=== PATIENT | male | born 1950 | race Caucasian/White ===

== ENCOUNTER 2023-11-06 10:24 | Emergency (ER) | payer OTHER ==
[~2023-11-06] VITALS: Ht 185.4 cm; Wt 118.8 kg
[2023-11-06 10:24] VITALS: BP_SYST 129; PULSE 110; RESP 17; TEMP 98.2; O2SAT 98
[2023-11-06] MEDS ORDERED: LORA-259 PO (10:47)
[2023-11-06] MEDS ORDERED: HYDR-3917 PO (10:47)
[2023-11-06] MEDS ORDERED: HYDR-2923 PO (10:47)
[2023-11-06] MEDS ORDERED: TRAZ50TA54 PO (10:47)
[2023-11-06] MEDS ORDERED: DIPH50CA38 PO (10:47)
[2023-11-06] MEDS ORDERED: METO5TAB7 PO (10:47)
[2023-11-06] MEDS ORDERED: iohexoL 350 mgI/mL, 100 ML INFUS..BTL IV ONE (10:51)
[2023-11-06 11:10] LABS: HEMATOCRIT 25.6 % (36-54); HEMOGLOBIN 8.1 g/dL (14.0-18.0); MEAN CORPUSCULAR HEMOGLOBIN 26 pg (27-31); MEAN CORPUSCULAR HGB CONC 32 % (32-36); MEAN CORPUSCULAR VOLUME 82 fL (79.0-98.0); PLATELET COUNT (AUTO) 198 K/uL (130-430); RED BLOOD CELL COUNT(AUTO) 3.14 MIL/uL (4.2-6.2); RED CELL DISTRIBUTION WIDTH 16.6 % (9.0-15.0)
[2023-11-06] MEDS ORDERED: ANTIHISTAMINE PO (11:23)
[2023-11-06] MEDS ORDERED: BISA10SU61 RC (11:23)
[2023-11-06] MEDS ORDERED: SIME80TA5 PO (11:23)
[2023-11-06] MEDS ORDERED: MOM PO (11:23)
[2023-11-06] MEDS ORDERED: ANTIDIARRHEAL (11:23)
[2023-11-06] MEDS ORDERED: EPIN0.3S IM (11:23)
[2023-11-06] MEDS ORDERED: NALO4SPR INH (11:23)
[2023-11-06] MEDS ORDERED: GUAI5SYR PO (11:23)
[2023-11-06 11:25] LABS: WHITE BLOOD COUNT (AUTO) 6.2 K/uL (4.8-10.8)
[2023-11-06 11:28] LABS: INR 1.3 (0.80-1.20); PROTHROMBIN TIME 13.7 SECS (9.5-12.5)
[2023-11-06 11:31] LABS: ALANINE AMINOTRANSFERASE 10 U/L (12-78); ALBUMIN 2.7 g/dL (3.4-4.8); ANION GAP 5 (5-15); ASPARTATE AMINOTRANSFERASE 24 U/L (10-37); CALCIUM 8.9 mg/dL (8.4-11.0); CARBON DIOXIDE 29 mmol/L (23-29); CHLORIDE 103 mmol/L (98-107); CREATININE 1.57 mg/dL (0.55-1.30); GLUCOSE 86 mg/dL (74-106); POTASSIUM 3.2 mmol/L (3.5-5.1); SODIUM SERUM 137 mmol/L (136-145); TOTAL PROTEIN, SERUM 6.4 g/dL (6.4-8.3); UREA NITROGEN, BLOOD 31 mg/dL (8-21)
[2023-11-06 11:36] LABS: BILIRUBIN,DIRECT 0.5 mg/dL (0.0-0.3)
[2023-11-06] MEDS ORDERED: OMEP-268 PO (11:38)
[2023-11-06] MEDS ORDERED: RIVA20TA PO (11:38)
[2023-11-06] MEDS ORDERED: POTA-360 PO (11:38)
[2023-11-06] MEDS ORDERED: LUTE6CAP (11:38)
[2023-11-06] MEDS ORDERED: ALL300 PO (11:38)
[2023-11-06] MEDS ORDERED: SUCR1TAB PO (11:38)
[2023-11-06] MEDS ORDERED: ASPI81CA PO (11:38)
[2023-11-06] MEDS ORDERED: BUME1TAB31 PO (11:38)
[2023-11-06] MEDS ORDERED: ASCO500C18 PO (11:38)
[2023-11-06] MEDS ORDERED: NAPR-686 PO (11:38)
[2023-11-06] MEDS ORDERED: LEVO75CA5 PO (11:38)
[2023-11-06] MEDS ORDERED: MAGN400T7 PO (11:38)
[2023-11-06] MEDS ORDERED: DOCU250C75 PO (11:38)
[2023-11-06] MEDS ORDERED: VITAMIN E PO (11:39)
[2023-11-06] MEDS ORDERED: MULT-1294 PO (11:39)
[2023-11-06] MEDS ORDERED: PYRI100T22 PO (11:39)
[2023-11-06 11:44] LABS: ALCOHOL, BLOOD < 3 mg/dL (<10)
[2023-11-06 11:52] LABS: BILIRUBIN,URINE NEGATIVE (NEGATIVE); BLOOD, URINE 2+ (NEGATIVE); CLARITY/URINE CLEAR (CLEAR); COLOR,URINE YELLOW (YELLOW); GLUCOSE,URINE NEGATIVE (NEGATIVE); KETONES,URINE NEGATIVE (NEGATIVE); LEUKOCYTE ESTERASE ,URINE 3+ (NEGATIVE); NITRITE, URINE POSITIVE (NEGATIVE); PROTEIN URINE 1+ (NEGATIVE); UROBILINOGEN,URINE 0.2 (0.2-1.0)
[2023-11-06 12:06] LABS: BACTERIA,URINE MODERATE /HPF (None Seen); RBC,URINE 50-80 /HPF (0-3); WBC,URINE 50-80 /HPF (0-3)
[2023-11-06] MEDS ORDERED: BACITRACIN 1 GM OINT TP ONE (12:28)
[2023-11-06] MEDS: ATORVASTATIN 20 MG TABLET PO SCH (12:30)
[2023-11-06] MEDS ORDERED: VANCOMYCIN HCL 1000 MG/VIAL IV ONE (12:33)
[2023-11-06] MEDS ORDERED: cefTRIAXone 1 GM VIAL ONE (12:34)
[2023-11-06 12:51] LABS: TOTAL BILIRUBIN 0.8 mg/dL (0.0-1.0)
[2023-11-06] MEDS: cefTRIAXone 1 GM in D5W 50 ML IV ONE (12:52)
[2023-11-06] MEDS: VANCOMYCIN HCL 1,000 MG in NS 250 ML IV ONE (12:53)
[2023-11-06] MEDS: BACITRACIN 1 GM OINT TP ONE (12:53)
[2023-11-06] MEDS: ASPIRIN 325 MG TABLET (ECOTRIN) PO ONE (12:53)
[2023-11-06 13:05] LABS: ATYPICAL LYMPHOCYTES % 3 % (0-0); BAND % (MANUAL) 8 % (0-6); BASOPHILS % (MANUAL) 0 % (0-2); LYMPHOCYTES % (MANUAL) 7 % (20-46); MONOCYTES % (MANUAL) 10 % (0-11)
[2023-11-06 13:06] LABS: EOSINOPHILS % (MANUAL) 2 % (0-7); HYPOCHROMASIA 1+; PLATELET ESTIMATE ADEQUATE (ADEQUATE)
[2023-11-06 13:07] LABS: ANISOCYTOSIS 1+; ROULEAU 1+
[2023-11-06] MEDS: NACL 0.9% 1,000 ML IV ONE (13:18)
[2023-11-06 16:01] VITALS: BP_SYST 120; PULSE 105; RESP 20; TEMP 98.6; O2SAT 96
== END 2023-11-06 16:01 | disposition short-term general hospital (02) ==
LOC: SED 10:24
DX: G45.9 Transient cerebral ischemic attack, unspecified (principal); N39.0 Urinary tract infection, site not specified; R29.810 Facial weakness; L08.89 Other specified local infections of the skin and subcutaneous tissue; Z20.822 Contact with and (suspected) exposure to COVID-19; Z88.0 Allergy status to penicillin; Z79.01 Long term (current) use of anticoagulants; Z79.82 Long term (current) use of aspirin; Z79.890 Hormone replacement therapy; Z79.899 Other long term (current) drug therapy
CPT/HCPCS: 99285; 70450; 96365; 71045; 96367; 96366; 87426; 85027; 80076; 80048; 81001; 85007; 85610; 85730; 87040; 87070; 87086; 87186; 84484; 87075; 36415; 93005; 73610; 70496; 70498; 82948; 83605; G0482; Q9967; J0696; J3370; 81000; 81015